=== PATIENT | female | born 1960 | race African-American/Black ===

== ENCOUNTER 2017-05-16 16:19 | Emergency (ER) | payer OTHER ==
[~2017-05-16] VITALS: Ht 157.5 cm; Wt 117.0 kg
[~2017-05-16 16:19] MED LIST: HUM10VIA9; [UNRECOGNIZED DRUG - OTHER]
[2017-05-16] MEDS ORDERED: KETOROLAC 30MG/ML VIAL IV STA (18:00)
[2017-05-16] MEDS ORDERED: ASPIRIN 81MG TABLET PO STA (18:00)
[2017-05-16 18:22] LABS: BASOPHILS % 0.6 % (0.0-2.0); EOSINOPHILS % 2.7 % (0.0-5.0); HEMATOCRIT. 35.4 % (36.0-48.0); LYMPHOCYTES % 43.8 % (20.0-50.0); MEAN CORPUSCULAR HEMOGLOBIN 29.7 pg (28.0-32.0); MEAN CORPUSCULAR VOLUME 87.5 fL (81.0-99.0); MEAN PLATELET VOLUME 9.4 fl (7.4-10.4); MONOCYTES % 7.8 % (2.0-8.0); NEUTROPHILS % 45.1 % (40.0-76.0); PLATELET 270 x1000/uL (130-400); RED BLOOD CELL COUNT 4.05 mill/uL (4.2-5.4); RED CELL DISTRIBUTION WIDTH 13.4 % (11.6-14.6)
[2017-05-16 18:26] LABS: CARBON DIOXIDE 25 mEq/L (21-32); CHLORIDE 103 mEq/L (98-107); TROPONIN I < 0.02 ng/mL (0.00-0.04)
[2017-05-16] MEDS ORDERED: ONDANSETRON HCL 4MG/2ML VIAL IV ONE (20:15)
[2017-05-16] MEDS ORDERED: MORPHINE SULFATE 4 MG/ML CPJ (NOT FOR IM USE) IV ONE (20:15)
[2017-05-16 21:10] VITALS: BP 170/94
[2017-05-17] MEDS ORDERED: LINA5TAB PO (09:32)
[2017-05-17] MEDS ORDERED: HUMALOG SQ (09:32)
[2017-05-17] MEDS ORDERED: POTA10CA42 PO (09:32)
[2017-05-17] MEDS ORDERED: PREG75CA PO (09:32)
[2017-05-17] MEDS ORDERED: GABA-531 PO (09:32)
== END 2017-05-16 21:22 | disposition home or self-care (01) ==
LOC: ER 17:25
DX: R07.89 Other chest pain (principal); E11.9 Type 2 diabetes mellitus without complications; I10 Essential (primary) hypertension; Z90.710 Acquired absence of both cervix and uterus; Z98.890 Other specified postprocedural states; Z79.4 Long term (current) use of insulin
CPT/HCPCS: 36415; 71010; 80053; 83690; 83880; 84484; 85025; 85379; 93005; 96374; 96375; 99285; J1885; J2270; J2405; Z7610

== ENCOUNTER 2017-05-17 02:56 | Inpatient (IN) | payer OTHER ==
[~2017-05-17] VITALS: Ht 157.5 cm; Wt 119.3 kg
[2017-05-17] MEDS ORDERED: MORPHINE SULFATE 4 MG/ML CPJ (NOT FOR IM USE) IV STA (04:20)
[2017-05-17] MEDS ORDERED: ONDANSETRON HCL 4MG/2ML VIAL IV STA (04:20)
[2017-05-17] MEDS ORDERED: ASPIRIN 81MG TABLET PO ONE (04:30)
[2017-05-17 05:05] LABS: EOSINOPHILS % 2.8 % (0.0-5.0); HEMATOCRIT. 35.3 % (36.0-48.0); HEMOGLOBIN. 11.9 g/dL (12.0-16.0); LYMPHOCYTES % 36.1 % (20.0-50.0); MEAN CORPUSCULAR HEMOGLOBIN 29.7 pg (28.0-32.0); MEAN CORPUSCULAR VOLUME 87.7 fL (81.0-99.0); MEAN PLATELET VOLUME 9.3 fl (7.4-10.4); MONOCYTES % 9.6 % (2.0-8.0); NEUTROPHILS % 50.5 % (40.0-76.0); PLATELET 239 x1000/uL (130-400); RED BLOOD CELL COUNT 4.02 mill/uL (4.2-5.4); RED CELL DISTRIBUTION WIDTH 13.3 % (11.6-14.6)
[2017-05-17 05:19] LABS: BETA HYDROXYBUTYRATE 0.1 mMol/L (0.0-0.3); CARBON DIOXIDE 25 mEq/L (21-32); CHLORIDE 104 mEq/L (98-107); TROPONIN I < 0.02 ng/mL (0.00-0.04)
[2017-05-17 08:00] VITALS: BP 152/77
[2017-05-17] MEDS ORDERED: PREG75CA PO (09:32)
[2017-05-17] MEDS ORDERED: POTA10CA42 PO (09:32)
[2017-05-17] MEDS ORDERED: GABA-531 PO (09:32)
[2017-05-17] MEDS ORDERED: HUMALOG SQ (09:32)
[2017-05-17] MEDS ORDERED: LINA5TAB PO (09:32)
[2017-05-17 09:34] VITALS: BP 152/77
[2017-05-17] MEDS ORDERED: AMLODIPINE 10MG TABLET PO SCH (10:15)
[2017-05-17] MEDS ORDERED: CLONIDINE 0.1MG TABLET PO PRN (10:15)
[2017-05-17] MEDS ORDERED: DEXTROSE 50% WATER 50ML SYRINGE IV PRN (10:15)
[2017-05-17] MEDS ORDERED: GABAPENTIN 300MG CAPSULE PO SCH (10:30)
[2017-05-17] MEDS: ENOXAPARIN 30MG/0.3ML SYR SUBCUT SCH ×2 (10:34→21:38)
[2017-05-17 12:00] VITALS: BP 147/81
[2017-05-17] MEDS: BLOOD SUGAR DIAGNOSTIC STRIP TEST SCH ×3 (12:42→21:24)
[2017-05-17] MEDS: INSULIN LISPRO 100 UNITS/ML SUBCUT SCH ×3 (13:13→21:42)
[2017-05-17 16:00] VITALS: BP 144/84
[2017-05-17] MEDS: ACETAMINOPHEN 325MG TABLET PO PRN ×2 (17:54→21:48)
[2017-05-17 18:07] VITALS: BP 135/84
[2017-05-17 20:15] VITALS: BP 149/74
== END 2017-05-17 22:10 | disposition short-term general hospital (02) | DRG 311 ==
LOC: ER 04:10 → 6WST 05:04 → EDBEDREQ 05:18 → ENRESERV 07:04
PROVIDERS: ADMIT Internal Medicine; ATTEND Internal Medicine
DX: I24.9 Acute ischemic heart disease, unspecified (principal); E78.00 Pure hypercholesterolemia, unspecified; E78.5 Hyperlipidemia, unspecified; I10 Essential (primary) hypertension; E11.40 Type 2 diabetes mellitus with diabetic neuropathy, unspecified; Z82.49 Family history of ischemic heart disease and other diseases of the circulatory system; Z90.49 Acquired absence of other specified parts of digestive tract; Z90.710 Acquired absence of both cervix and uterus
CPT/HCPCS: 36415; 80053; 82010; 82962; 84484; 85025; 93005; 93970; 96374; 96375; 99285; J1650; J1815; J2270; J2405

== ENCOUNTER 2022-12-26 03:44 | Inpatient (IN) | payer OTHER, MEDICAID ==
[~2022-12-26] VITALS: Ht 157.5 cm; Wt 109.3 kg
[~2022-12-26 03:44] MED LIST changes: +GABA-532 PO; -HUM10VIA9; +HUMALOG SQ; +LINA5TAB PO; +POTA10CA42 PO; +PREG75CA PO; -[UNRECOGNIZED DRUG - OTHER]
[2022-12-26 11:11] LABS: CHLORIDE 104 mEq/L (98-107); HEMOGLOBIN. 11.5 g/dL (12.0-16.0); MEAN CORPUSCULAR HEMOGLOBIN 29.5 pg (28.0-32.0); MEAN CORPUSCULAR VOLUME 89.7 fL (81.0-99.0); MEAN PLATELET VOLUME 7.4 fl (7.4-10.4); PLATELET 257 x1000/uL (130-400); RED CELL DISTRIBUTION WIDTH 17.5 % (11.6-14.6)
[2022-12-26] MEDS ORDERED: IPRATROPIUM BROMIDE (0.02%) 0.5MG/2.5ML NEB HHN STA (11:57)
[2022-12-26] MEDS ORDERED: METHYLPREDNISOLONE SOD SUCC 125 MG/2 ML VIAL IV STA (11:57)
[2022-12-26] MEDS ORDERED: ALBUTEROL (0.083%) 2.5MG/3ML NEB HHN STA (11:57)
[2022-12-26] MEDS ORDERED: OSELTAMIVIR 75MG CAPSULE PO ONE (12:00)
[2022-12-26] MEDS ORDERED: LEVOFLOXACIN 750MG PREMIX 150 ML IV ONE (12:00)
[2022-12-26] MEDS ORDERED: ASPIRIN 325MG EC TABLET PO ONE (12:00)
[2022-12-26 12:20] LABS: PLATELET ESTIMATE NORMAL
[2022-12-26 13:38] LABS: D-DIMER 0.88 mg/L FEU (<0.50); PARTIAL THROMBOPLASTIN TIME 30.6 sec (23.4-31.0); PROTHROMBIN TIME 10.7 sec (9.6-11.0)
[2022-12-26 15:23] LABS: CLARITY URINE CLEAR (CLEAR); COLOR URINE YELLOW (YELLOW); KETONES URINE TRACE (NEGATIVE); LEUKOCYTE ESTERASE URINE NEGATIVE (NEGATIVE); NITRITE URINE NEGATIVE (NEGATIVE); OCCULT BLOOD URINE 1+ (NEGATIVE); PH URINE 6.5 (4.5-8.0); PROTEIN URINE 4+ (NEGATIVE); SPECIFIC GRAVITY URINE 1.024 (1.005-1.030)
[2022-12-26 18:00] VITALS: BP 177/76
[2022-12-26] MEDS ORDERED: AMLO5TAB88 PO (19:01)
[2022-12-26] MEDS ORDERED: ASPI-986 MT (19:01)
[2022-12-26] MEDS ORDERED: FURO-152 MT (19:01)
[2022-12-26] MEDS ORDERED: ATOR10TA69 MT (19:01)
[2022-12-26 20:00] VITALS: BP 124/73
[2022-12-26] MEDS ORDERED: DEXTROSE 50% WATER 50ML SYRINGE IV PRN (21:45)
[2022-12-26] MEDS ORDERED: IOHEXOL-300 100 ML BOTTLE ONE (22:05)
[2022-12-26] MEDS: BLOOD SUGAR DIAGNOSTIC STRIP TEST SCH (22:18)
[2022-12-26] MEDS: ATORVASTATIN CALCIUM 10MG TABLET PO SCH (22:18)
[2022-12-26] MEDS: HEPARIN 5000 UNITS/ML VIAL SUBCUT SCH (22:19)
[2022-12-26] MEDS: INSULIN LISPRO 100 UNITS/ML SUBCUT SCH (22:20)
[2022-12-26 23:00] VITALS: BP 195/98
[2022-12-26 23:10] VITALS: BP 195/103
[2022-12-26 23:50] VITALS: BP 201/93
[2022-12-27] VITALS (11 sets, daily range): BP systolic 144–201; BP diastolic 68–113
[2022-12-27 00:27] LABS: CREATINE KINASE MB FRACTION 3.5 ng/mL (0.5-3.6)
[2022-12-27] MEDS: CLONIDINE 0.1MG TABLET PO PRN ×2 (01:24→21:14)
[2022-12-27 04:44] LABS: HEPATITIS B SURFACE ANTIGEN NEGATIVE
[2022-12-27 06:13] LABS: HEMATOCRIT 34.9 % (36.0-48.0); HEMOGLOBIN 11.6 g/dL (12.0-16.0); MEAN CORPUSCULAR HEMOGLOBIN 29.4 pg (28.0-32.0); MEAN CORPUSCULAR VOLUME 88.5 fL (81.0-99.0); PLATELET 232 x1000/uL (130-400); RED BLOOD CELL COUNT 3.95 mill/uL (4.2-5.4); RED CELL DISTRIBUTION WIDTH 17.2 % (11.6-14.6)
[2022-12-27 07:03] LABS: CHLORIDE 96 mEq/L (98-107)
[2022-12-27 07:29] LABS: CREATINE KINASE 742 IU/L (26-192); CREATINE KINASE MB FRACTION 4.2 ng/mL (0.5-3.6)
[2022-12-27] MEDS: BLOOD SUGAR DIAGNOSTIC STRIP TEST SCH ×4 (07:54→21:17)
[2022-12-27] MEDS ORDERED: FUROSEMIDE 20MG TABLET PO SCH (09:00)
[2022-12-27] MEDS ORDERED: AMLODIPINE 5MG TABLET PO SCH (09:00)
[2022-12-27] MEDS ORDERED: LINAGLIPTIN 5MG TABLET PO SCH (09:00)
[2022-12-27] MEDS ORDERED: ASPIRIN 81MG TABLET PO SCH (09:00)
[2022-12-27] MEDS ORDERED: GABAPENTIN 300MG CAPSULE PO SCH (09:00)
[2022-12-27] MEDS: HEPARIN 5000 UNITS/ML VIAL SUBCUT SCH ×2 (09:06→21:13)
[2022-12-27] MEDS: INSULIN LISPRO 100 UNITS/ML SUBCUT SCH ×4 (09:16→21:15)
[2022-12-27] MEDS: METHYLPREDNISOLONE SOD SUCC 40 MG/ML VIAL IV SCH ×2 (11:43→18:30)
[2022-12-27] MEDS ORDERED: LEVOFLOXACIN 750MG PREMIX 150 ML IV NR (12:00)
[2022-12-27] MEDS: ATORVASTATIN CALCIUM 10MG TABLET PO SCH (21:13)
[2022-12-28] MEDS ORDERED: LEVOFLOXACIN 500MG PREMIX 100 ML IV SCH (12:00)
[2022-12-28] MEDS ORDERED: EPOETIN ALFA-EPBX 4,000 UNIT/ML VIAL SUBCUT SCH (21:00)
== END 2022-12-27 22:10 | disposition short-term general hospital (02) | DRG 291 ==
LOC: ER 03:44 → 7WST 14:39 → EDBEDREQ 15:24
PROVIDERS: ADMIT Internal Medicine; ATTEND Internal Medicine
PROC: 5A1D70Z Performance of Urinary Filtration, Intermittent, Less than 6 Hours Per Day (ICD-10-PCS; principal; 2022-12-26)
DX: I13.2 Hypertensive heart and chronic kidney disease with heart failure and with stage 5 chronic kidney disease, or end stage renal disease (principal); J18.9 Pneumonia, unspecified organism; N18.6 End stage renal disease; E11.22 Type 2 diabetes mellitus with diabetic chronic kidney disease; E78.00 Pure hypercholesterolemia, unspecified; Z20.822 Contact with and (suspected) exposure to COVID-19; J20.9 Acute bronchitis, unspecified; I50.9 Heart failure, unspecified; Z91.15 Patient's noncompliance with renal dialysis; Z90.49 Acquired absence of other specified parts of digestive tract; Z99.2 Dependence on renal dialysis; Z90.710 Acquired absence of both cervix and uterus; Z88.0 Allergy status to penicillin; Z79.4 Long term (current) use of insulin
CPT/HCPCS: 36415; 71045; 71275; 80053; 81003; 82550; 82553; 82962; 83036; 83605; 83880; 84484; 85025; 85027; 85379; 86705; 86709; 86803; 87340; 87426; 87804; 90935; 93005; 94644; 99285; C1893; C9803; J1644; J1815; J1956; J2920; J2930; Q9967

== ENCOUNTER 2024-11-22 15:33 | Emergency (ER) | payer OTHER ==
[~2024-11-22] VITALS: Ht 157.5 cm; Wt 101.0 kg
[~2024-11-22 15:33] MED LIST changes: +AMLO5TAB88 PO; +ASPI-986 MT; +ATOR10TA69 MT; +BENZ100C86 MT; +FURO-152 MT; +GABA-1180 PO; -GABA-532 PO; -POTA10CA42 PO; +POTA10CA93 PO; +VANC125C5 MT
[2024-11-22 15:47] VITALS: O2SAT 98
[2024-11-22 15:59] VITALS: BP 170/82; PULSE 78; RESP 16; TEMP 98.3; O2SAT 99
[2024-11-22 17:23] LABS: BASOPHILS % 1.2 % (0.0-2.0); EOSINOPHILS % 1.8 % (0.0-5.0); HEMATOCRIT. 33.4 % (36.0-48.0); HEMOGLOBIN. 10.7 g/dL (12.0-16.0); LYMPHOCYTES % 17.4 % (20.0-50.0); MEAN CORPUSCULAR HGB CONC 32.1 g/dL (31.0-37.0); MEAN CORPUSCULAR VOLUME 96.7 fL (81.0-99.0); MEAN PLATELET VOLUME 8.6 fl (7.4-10.4); MONOCYTES % 8.8 % (2.0-8.0); NEUTROPHILS % 70.8 % (40.0-76.0); PLATELET 325 x1000/uL (130-400); RED BLOOD CELL COUNT 3.45 mill/uL (4.2-5.4); RED CELL DISTRIBUTION WIDTH 14.1 % (11.6-14.6); WHITE BLOOD COUNT 12.3 x1000/uL (4.5-11.0)
== END 2024-11-22 23:02 | disposition home or self-care (01) ==
LOC: ER 15:59
DX: R31.9 Hematuria, unspecified (principal); I12.0 Hypertensive chronic kidney disease with stage 5 chronic kidney disease or end stage renal disease; N18.6 End stage renal disease; N93.9 Abnormal uterine and vaginal bleeding, unspecified; E78.00 Pure hypercholesterolemia, unspecified; E11.22 Type 2 diabetes mellitus with diabetic chronic kidney disease; Z90.710 Acquired absence of both cervix and uterus; Z90.49 Acquired absence of other specified parts of digestive tract; Z88.0 Allergy status to penicillin; Z99.2 Dependence on renal dialysis; Z79.899 Other long term (current) drug therapy; Z79.84 Long term (current) use of oral hypoglycemic drugs; Z79.82 Long term (current) use of aspirin
CPT/HCPCS: 36415; 76856; 85025; 86850; 86900; 99284